=== PATIENT | male | born 1955 | race American Indian/Alaskan Native ===

== ENCOUNTER 2018-12-29 12:51 | Outpatient (CLI) | payer MEDICAID ==
--- NOTE | 2018-12-29 14:33 | XRay Report ---
CERVICAL SPINE, 5 VIEWS INDICATION: M54.2) CERVICALGIA. COMPARISON: None. IMPRESSION: Normal alignment. Moderate to severe degenerative disc narrowing and circumferential sp urring is identified at all levels. The facet joints are in appropriate relationship with minimal art hritic changes. The oblique images demonstrate no high-grade bony narrowing of the neural foramen. N o acute osseous or soft tissue abnormality. The prevertebral soft tissues are normal thickness. Signer Name: Aj Chan Jr, MD Signed: 12/29/2018 2:28 PM Workstation Name: [id number]
--- NOTE | 2018-12-29 14:33 | XRay Report ---
LEFT KNEE, 2 VIEWS INDICATION: M25.562) PAIN IN LEFT KNEE. COMPARISON: None. IMPRESSION: No acute osseous or soft tissue abnormality. No significant DJD. Small enthesophyte p rojecting from the superior patella is noted. Vascular calcifications are noted in the distal superfi cial femoral artery and popliteal artery. Signer Name: Aj Chan Jr, MD Signed: 12/29/2018 2:29 PM Workstation Name: [id number]
--- NOTE | 2018-12-29 14:34 | XRay Report ---
LEFT ELBOW, 3 VIEWS INDICATION: M79.602)PAIN IN LEFT ARM. COMPARISON: None. IMPRESSION: No acute osseous or soft tissue abnormality. No significant DJD. Signer Name: Aj Chan Jr, MD Signed: 12/29/2018 2:29 PM Workstation Name: [id number]
== END 2018-12-29 12:52 | disposition home or self-care (01) ==
LOC: XRAY 12:51
PROVIDERS: ATTEND Orthopaedic Surgery
DX: M25.522 Pain in left elbow (principal); M79.602 Pain in left arm; M25.562 Pain in left knee; M54.2 Cervicalgia
CPT/HCPCS: 72050